=== PATIENT | male | born 1980 | race Caucasian/White ===

== ENCOUNTER 2017-03-24 21:16 | Emergency (ER) | payer BC, OTHER, SELFPAY ==
[~2017-03-24] VITALS: Ht 182.9 cm; Wt 104.1 kg
[2017-03-24] MEDS ORDERED: HYDROmorphone 1 MG/ML, 1ML ONE ×2 (21:52→22:09)
[2017-03-24] MEDS ORDERED: HYDROmorphone 1 MG/ML, 1ML IV ONE ×2 (22:00→23:30)
[2017-03-24] MEDS ORDERED: PLEASE ENTER ALLERGIES MC SCH ×2 (22:00)
[2017-03-24 23:31] VITALS: BP 117/57
== END 2017-03-24 23:33 | disposition home or self-care (01) ==
LOC: ED 23:01
DX: S43.084A Other dislocation of right shoulder joint, initial encounter (principal); W19.XXXA Unspecified fall, initial encounter; Y93.6A Activity, physical games generally associated with school recess, summer camp and children; Y92.89 Other specified places as the place of occurrence of the external cause; Y99.8 Other external cause status
CPT/HCPCS: 23650; 73020; 73030; 96374; 99284; J1170